=== PATIENT | male | born 1935 | race Caucasian/White ===

== ENCOUNTER 2017-06-27 11:06 | Inpatient (IN) | payer MEDICARE, OTHER ==
[~2017-06-27] VITALS: Ht 175.3 cm; Wt 79.0 kg
[~2017-06-27 11:06] MED LIST: BUPIVACAINE 0.25% ONE; BUPIVACAINE/PF 0.5% ONE; THROMBIN 5,000 UNIT VIAL TP ONE
[2017-06-27 11:49] VITALS: BP 189/90
[2017-06-27] MEDS ORDERED: LACTATED RINGERS 1,000 ML IV SCH (11:59)
[2017-06-27] MEDS ORDERED: LOSA50TA6 PO (12:02)
[2017-06-27] MEDS ORDERED: MELO15TA24 PO (12:02)
[2017-06-27] MEDS ORDERED: METO25TA35 PO (12:02)
[2017-06-27] MEDS ORDERED: FENTANYL PF 100 MCG/2ML ONE ×5 (13:32→16:44)
[2017-06-27] MEDS ORDERED: MIDAZOLAM 1 MG/ML, 2ML ONE (13:32)
[2017-06-27] MEDS ORDERED: ROCURONIUM 10 MG/ML ONE ×2 (14:02)
[2017-06-27] MEDS ORDERED: SUCCINYLCHOLINE 20 MG/ML, 10ML ONE (14:02)
[2017-06-27] MEDS ORDERED: DEXAMETHASONE 4 MG/ML, 1ML ONE (14:02)
[2017-06-27] MEDS ORDERED: CEFAZOLIN 1,000 MG ONE (14:02)
[2017-06-27] MEDS ORDERED: PROPOFOL 10 MG/ML, 20ML ONE (14:02)
[2017-06-27] MEDS ORDERED: BACITRACIN 50,000 UNIT IRRIG ONE (14:34)
[2017-06-27] MEDS ORDERED: EPINEPHRINE 1 MG/ML, 1ML INFIL ONE (14:35)
[2017-06-27] MEDS ORDERED: BUPIVACAINE/PF 0.25% EPIDPUSH ONE (15:26)
[2017-06-27] MEDS ORDERED: FENTANYL PF 100 MCG/2ML EPIDPUSH ONE (15:27)
[2017-06-27] MEDS ORDERED: ONDANSETRON 2MG/ML, 2ML IVPush PRN ×2 (16:00)
[2017-06-27] MEDS ORDERED: HYDROcodone/APAP 10/325 MG TABLET PO PRN (16:00)
[2017-06-27] MEDS ORDERED: HYDROcodone/APAP 7.5-325MG/15ML UDC PO PRN (16:00)
[2017-06-27] MEDS ORDERED: OXYcodone 5 MG/5 ML ORAL.SOL UDC PO PRN (16:00)
[2017-06-27] MEDS ORDERED: PHARMACY MAY ADJ FOR RENAL FX MC PRN (16:00)
[2017-06-27] MEDS ORDERED: DIPHENHYDRAMINE 50 MG/ML, 1ML IVPush PRN (16:00)
[2017-06-27] MEDS ORDERED: PROMETHAZINE 25 MG/ML, 1ML IV PRN (16:00)
[2017-06-27] MEDS ORDERED: morphine SULFATE 10 MG/ML, 1ML IVPush PRN (16:00)
[2017-06-27] MEDS ORDERED: ALBUTEROL SULFATE 2.5 MG/3 ML NPPB PRN (16:00)
[2017-06-27] MEDS ORDERED: OXYcodone/APAP 5/325MG TABLET PO PRN (16:00)
[2017-06-27] MEDS ORDERED: SENNA/DOCUSATE TABLET PO PRN (16:00)
[2017-06-27] MEDS ORDERED: LABETALOL 5MG/ML, 20ML IV PRN (16:00)
[2017-06-27] MEDS ORDERED: ACETAMINOPHEN 325 MG TABLET PO PRN ×2 (16:00)
[2017-06-27] MEDS ORDERED: MIDAZOLAM 1 MG/ML, 2ML IV PRN (16:00)
[2017-06-27] MEDS ORDERED: METOPROLOL 1 MG/ML, 5ML IV PRN (16:00)
[2017-06-27] MEDS ORDERED: EPHEDRINE 50 MG/ML, 1ML IVPush PRN (16:00)
[2017-06-27] MEDS ORDERED: BISACODYL 10 MG SUPP PR PRN (16:00)
[2017-06-27] MEDS ORDERED: PROMETHAZINE 25 MG/ML, 1ML IM PRN (16:00)
[2017-06-27] MEDS ORDERED: OXYcodone 5 MG/5 ML ORAL.SOL UDC ONE (16:17)
[2017-06-27] MEDS: FENTANYL PF 100 MCG/2ML IV PRN ×4 (16:19→17:10)
[2017-06-27] MEDS ORDERED: HYDROmorphone 1 MG/ML, 1ML ONE ×2 (16:38→17:21)
[2017-06-27] MEDS: HYDROmorphone 1 MG/ML, 1ML IV PRN ×4 (16:41→17:25)
[2017-06-27] MEDS ORDERED: hydrALAzine 20 MG/ML, 1ML ONE (16:52)
[2017-06-27] MEDS: hydrALAzine 20 MG/ML, 1ML IV PRN ×2 (16:54→17:44)
[2017-06-27] MEDS: SODIUM CHLORIDE FLUSH 10ML SYR IVF SCH (21:00)
[2017-06-27] MEDS: HYDROcodone/APAP 5/325 TABLET PO PRN (21:25)
[2017-06-27] MEDS: D5%-0.9% NACL+KCL 20MEQ 1,000 ML IV SCH (21:26)
[2017-06-27] MEDS: CYCLOBENZAPRINE 10 MG TABLET PO PRN (22:32)
[2017-06-27] MEDS: CEFAZOLIN PMX 1GM/50ML 50 ML IVPB SCH (22:32)
[2017-06-28] MEDS: HYDROcodone/APAP 5/325 TABLET PO PRN ×3 (01:39→20:40)
[2017-06-28 01:47] VITALS: BP 124/67
[2017-06-28] MEDS: D5%-0.9% NACL+KCL 20MEQ 1,000 ML IV SCH ×2 (05:20→13:40)
[2017-06-28] MEDS: CEFAZOLIN PMX 1GM/50ML 50 ML IVPB SCH (06:37)
[2017-06-28 07:03] VITALS: BP 125/70
[2017-06-28] MEDS ORDERED: TAMSULOSIN 0.4 MG CAP.ER.24H PO ONE (08:30)
[2017-06-28] MEDS: SODIUM CHLORIDE FLUSH 10ML SYR IVF SCH ×2 (09:00→20:41)
[2017-06-28] MEDS ORDERED: CALCIUM CARBONATE 500 MG TAB.CHEW ONE (09:45)
[2017-06-28] MEDS: CALCIUM CARBONATE 500 MG TAB.CHEW PO PRN ×2 (09:50→16:30)
[2017-06-28] MEDS: LOSARTAN 50MG TABLET PO SCH (09:53)
[2017-06-28] MEDS: BETHANECHOL 25 MG TABLET PO SCH ×3 (09:53→20:40)
[2017-06-28] MEDS: CYCLOBENZAPRINE 10 MG TABLET PO PRN (12:24)
[2017-06-28 13:17] VITALS: BP 149/72
[2017-06-28 20:20] VITALS: BP 148/66
[2017-06-28] MEDS: METOPROLOL TARTRATE 25 MG TABLET PO SCH (20:40)
[2017-06-29] MEDS: D5%-0.9% NACL+KCL 20MEQ 1,000 ML IV SCH (00:26)
[2017-06-29 02:04] VITALS: BP 143/73
[2017-06-29] MEDS: HYDROcodone/APAP 5/325 TABLET PO PRN ×2 (04:18→09:10)
[2017-06-29 06:45] VITALS: BP 154/74
[2017-06-29] MEDS: SODIUM CHLORIDE FLUSH 10ML SYR IVF SCH (09:10)
[2017-06-29] MEDS: BETHANECHOL 25 MG TABLET PO SCH (09:10)
[2017-06-29] MEDS: LOSARTAN 50MG TABLET PO SCH (09:10)
[2017-06-29] MEDS: METOPROLOL TARTRATE 25 MG TABLET PO SCH (09:10)
[2017-06-29] MEDS ORDERED: HYDR-3240 PO (10:09)
[2017-06-29] MEDS ORDERED: CYCL5TAB PO (10:09)
[2017-06-29] MEDS ORDERED: CEPH-368 PO (10:10)
[2017-06-29] MEDS ORDERED: ONDA4TAB10 PO (10:10)
[2017-06-29] MEDS: CALCIUM CARBONATE 500 MG TAB.CHEW PO PRN (11:40)
[2017-06-29 11:42] VITALS: BP 117/69
[2017-06-29 13:33] VITALS: BP 108/63
== END 2017-06-29 13:55 | disposition home or self-care (01) | DRG 320 ==
LOC: OUT 11:06 → ORIP 16:51 → 4NOR 18:35
PROVIDERS: ADMIT Neurological Surgery; ATTEND Neurological Surgery
PROC: 01NR0ZZ Release Sacral Nerve, Open Approach (ICD-10-PCS; 2017-06-27)
PROC: 01NB0ZZ Release Lumbar Nerve, Open Approach (ICD-10-PCS; principal; 2017-06-27 15:30)
DX: M48.07 Spinal stenosis, lumbosacral region (principal); G89.29 Other chronic pain; M54.16 Radiculopathy, lumbar region; R33.9 Retention of urine, unspecified; Z90.49 Acquired absence of other specified parts of digestive tract; Z72.89 Other problems related to lifestyle; M48.06 Spinal stenosis, lumbar region
CPT/HCPCS: 72100; J0171; J0690; J1100; J1170; J2250; J2405; J2704; J3010; J3490; J0330; J0360; J3480; J7120

== ENCOUNTER 2018-11-14 06:32 | Inpatient (IN) | payer MEDICARE, OTHER ==
[~2018-11-14] VITALS: Ht 172.7 cm; Wt 83.2 kg
[~2018-11-14 06:32] MED LIST changes: +BACITRACIN 50,000 UNIT ONE; -BUPIVACAINE 0.25% ONE; -BUPIVACAINE/PF 0.5% ONE; +BUPIVACAINE/PF-EPI 0.5% 1:200K ONE; +CEFAZOLIN 1,000 MG ONE; +CEPH-368 PO; +CYCL5TAB PO; +FENTANYL PF 250 MCG/5ML ONE; +FLUT1AER PO; +GLYCOPYRROLATE 0.2MG/1ML, 5ML ONE; +HYDR-3240 PO; +LOSA50TA14 PO; +MELO15TA24 PO; +METO-93 PO; +METO25TA35 PO; +MULT1TAB13 PO; +NEOSTIGMINE 1 MG/ML, 10ML ONE; +OMEP20TA62 PO; +ONDA4TAB10 PO; +PROPOFOL 10 MG/ML, 20ML ONE; +PROPOFOL 50 ML ONE; +ROCURONIUM 10MG/ML,5ML ONE; +TAMS-11 PO; +VIT1CAPS42 PO
[2018-11-14 07:30] VITALS: BP 184/88
[2018-11-14] MEDS ORDERED: LACTATED RINGERS 1,000 ML IV SCH (07:34)
[2018-11-14] MEDS ORDERED: ACETAMINOPHEN 500 MG TABLET PO ONE (08:00)
[2018-11-14] MEDS ORDERED: GABAPENTIN 300 MG CAPSULE PO ONE (08:00)
[2018-11-14] MEDS ORDERED: LIDOCAINE-MPF 1%, 2ML INFIL ONE (08:00)
[2018-11-14] MEDS ORDERED: ONDANSETRON 2MG/ML, 2ML IV PRN (09:30)
[2018-11-14] MEDS ORDERED: OXYcodone 5 MG/5 ML ORAL.SOL UDC PO PRN (09:30)
[2018-11-14] MEDS ORDERED: ONDANSETRON ODT 8 MG PO PRN (09:30)
[2018-11-14] MEDS ORDERED: PROMETHAZINE 25 MG SUPP PR PRN (09:30)
[2018-11-14] MEDS ORDERED: PROMETHAZINE 25 MG/ML, 1ML IV PRN (09:30)
[2018-11-14] MEDS ORDERED: PROMETHAZINE 25 MG/ML, 1ML IM PRN ×3 (09:30→13:00)
[2018-11-14] MEDS ORDERED: MORPHINE SULFATE 4 MG/ML, 1ML IVPush PRN (09:30)
[2018-11-14] MEDS ORDERED: hydrALAzine 20 MG/ML, 1ML IV PRN (09:30)
[2018-11-14] MEDS ORDERED: LABETALOL 5MG/ML, 20ML IV PRN (09:30)
[2018-11-14] MEDS ORDERED: PROMETHAZINE 12.5 MG SUPP PR PRN (09:30)
[2018-11-14] MEDS ORDERED: MEPERIDINE/PF 25MG/0.5ML IVPush PRN (09:30)
[2018-11-14] MEDS ORDERED: PHENYLEPHRINE 10 MG/ML ONE (09:53)
[2018-11-14] MEDS ORDERED: PROPOFOL 50 ML ONE (10:32)
[2018-11-14] MEDS ORDERED: SENNA/DOCUSATE TABLET PO PRN (13:00)
[2018-11-14] MEDS ORDERED: OXYcodone/APAP 5/325MG TABLET PO PRN (13:00)
[2018-11-14] MEDS ORDERED: BISACODYL 10 MG SUPP PR PRN (13:00)
[2018-11-14] MEDS ORDERED: morphine SULFATE 10 MG/ML, 1ML IVPush PRN (13:00)
[2018-11-14] MEDS ORDERED: PHARMACY MAY ADJ FOR RENAL FX MC PRN (13:00)
[2018-11-14] MEDS ORDERED: MEPERIDINE/PF 25MG/ML,1ML ONE (13:10)
[2018-11-14] MEDS ORDERED: FENTANYL PF 100 MCG/2ML ONE (13:20)
[2018-11-14] MEDS ORDERED: CYCLOBENZAPRINE 10 MG TABLET ONE (13:20)
[2018-11-14] MEDS ORDERED: OXYcodone 5 MG/5 ML ORAL.SOL UDC ONE (13:20)
[2018-11-14] MEDS: CYCLOBENZAPRINE 10 MG TABLET PO PRN (13:25)
[2018-11-14] MEDS: FENTANYL PF 100 MCG/2ML IV PRN ×2 (13:25→13:30)
[2018-11-14] MEDS ORDERED: hydrALAzine 20 MG/ML, 1ML ONE (13:37)
[2018-11-14] MEDS ORDERED: HYDROmorphone 1 MG/ML, 1ML ONE ×2 (13:37→13:38)
[2018-11-14] MEDS: HYDROmorphone 2 MG/ML, 1ML IVPush PRN ×4 (13:45→14:05)
[2018-11-14] MEDS: D5%-0.9% NACL+KCL 20MEQ 1,000 ML IV SCH (15:33)
[2018-11-14] MEDS: HYDROcodone/APAP 5/325 TABLET PO PRN (16:50)
[2018-11-14] MEDS: CEFAZOLIN PMX 1GM/50ML 50 ML IVPB SCH (18:19)
[2018-11-14 19:42] VITALS: BP 134/78
[2018-11-14] MEDS: SODIUM CHLORIDE FLUSH 10ML SYR IVF SCH (20:35)
[2018-11-14] MEDS: LOSARTAN 50MG TABLET PO SCH (20:36)
[2018-11-15] VITALS (7 sets, daily range): BP systolic 133–190; BP diastolic 75–86
[2018-11-15] MEDS: CEFAZOLIN PMX 1GM/50ML 50 ML IVPB SCH (02:50)
[2018-11-15] MEDS: ENOXAPARIN 40 MG/0.4 ML SQ SCH (05:48)
[2018-11-15] MEDS: D5%-0.9% NACL+KCL 20MEQ 1,000 ML IV SCH (05:48)
[2018-11-15] MEDS: HYDROcodone/APAP 5/325 TABLET PO PRN ×2 (05:59→10:24)
[2018-11-15] MEDS: LOSARTAN 50MG TABLET PO SCH ×2 (08:30→21:18)
[2018-11-15] MEDS: METOPROLOL SUCCINATE 50 MG TAB.ER.24H PO SCH (08:30)
[2018-11-15] MEDS: TAMSULOSIN 0.4 MG CAP.ER.24H PO SCH (08:30)
[2018-11-15] MEDS: OMEPRAZOLE 20 MG CAPSULE.DR PO SCH (08:30)
[2018-11-15] MEDS: FLUTICASONE/VILANTEROL 100-25MCG/INH INH SCH (08:31)
[2018-11-15] MEDS: LUTEIN PO SCH (08:31)
[2018-11-15] MEDS: MULTIVITAMIN W MINERALS PO SCH (08:31)
[2018-11-15] MEDS: SODIUM CHLORIDE FLUSH 10ML SYR IVF SCH ×2 (08:31→21:19)
[2018-11-15] MEDS: ONDANSETRON 2MG/ML, 2ML IVPush PRN ×2 (10:26→18:33)
[2018-11-15] MEDS: CYCLOBENZAPRINE 10 MG TABLET PO PRN (15:03)
[2018-11-15] MEDS: HYDROcodone/APAP 10/325 MG TABLET PO PRN (18:44)
[2018-11-16] MEDS: FAMOTIDINE 20 MG TABLET PO SCH ×3 (00:13→19:46)
[2018-11-16 00:19] VITALS: BP 179/90
[2018-11-16] MEDS: D5%-0.9% NACL+KCL 20MEQ 1,000 ML IV SCH ×4 (01:27→19:47)
[2018-11-16] MEDS: ONDANSETRON 2MG/ML, 2ML IVPush PRN (02:04)
[2018-11-16 02:07] VITALS: BP 140/79
[2018-11-16] MEDS: ENOXAPARIN 40 MG/0.4 ML SQ SCH (05:19)
[2018-11-16] MEDS ORDERED: BUPIVACAINE 0.25% ONE (06:07)
[2018-11-16] MEDS ORDERED: BUPIVACAINE/PF-EPI 0.5% 1:200K ONE (06:07)
[2018-11-16] MEDS ORDERED: BACITRACIN 50,000 UNIT ONE (06:08)
[2018-11-16] MEDS ORDERED: THROMBIN 5,000 UNIT VIAL TP ONE ×2 (06:08→07:55)
[2018-11-16] MEDS ORDERED: PROPOFOL 50 ML ONE (06:58)
[2018-11-16] MEDS ORDERED: FENTANYL PF 250 MCG/5ML ONE (06:58)
[2018-11-16] MEDS ORDERED: EPHEDRINE 50 MG/ML, 1ML ONE (07:06)
[2018-11-16] MEDS ORDERED: ROCURONIUM 10MG/ML,5ML ONE (07:06)
[2018-11-16] MEDS ORDERED: ONDANSETRON 2MG/ML, 2ML ONE (07:06)
[2018-11-16] MEDS ORDERED: SUCCINYLCHOLINE 20 MG/ML, 10ML ONE (07:06)
[2018-11-16] MEDS ORDERED: PHENYLEPHRINE 10 MG/ML ONE (07:06)
[2018-11-16] MEDS ORDERED: BUPIVACAINE/PF-EPI 0.5% 1:200K INFIL ONE (07:55)
[2018-11-16] MEDS ORDERED: BACITRACIN 50,000 UNIT IRRIG ONE (07:56)
[2018-11-16] MEDS ORDERED: BISACODYL 10 MG SUPP PR PRN (09:00)
[2018-11-16] MEDS ORDERED: PROCHLORPERAZINE 5 MG/ML, 2ML IV PRN (09:00)
[2018-11-16] MEDS ORDERED: HYDROmorphone 2 MG/ML, 1ML IVPush PRN (09:00)
[2018-11-16] MEDS ORDERED: HYDROcodone/APAP 5/325 TABLET PO PRN (09:00)
[2018-11-16] MEDS ORDERED: MEPERIDINE/PF 25MG/0.5ML IVPush PRN (09:00)
[2018-11-16] MEDS ORDERED: METOPROLOL 1 MG/ML, 5ML IV PRN (09:00)
[2018-11-16] MEDS ORDERED: CYCLOBENZAPRINE 10 MG TABLET PO PRN (09:00)
[2018-11-16] MEDS ORDERED: hydrALAzine 20 MG/ML, 1ML IV PRN (09:00)
[2018-11-16] MEDS ORDERED: PROMETHAZINE 25 MG/ML, 1ML IV PRN (09:00)
[2018-11-16] MEDS ORDERED: ONDANSETRON 2MG/ML, 2ML IVPush PRN (09:00)
[2018-11-16] MEDS ORDERED: LABETALOL 5MG/ML, 20ML IV PRN (09:00)
[2018-11-16] MEDS: FLUTICASONE/VILANTEROL 100-25MCG/INH INH SCH (09:00)
[2018-11-16] MEDS ORDERED: OXYcodone 5 MG/5 ML ORAL.SOL UDC PO PRN (09:00)
[2018-11-16] MEDS ORDERED: HALOPERIDOL 5 MG/ML IV PRN (09:00)
[2018-11-16] MEDS ORDERED: ALBUTEROL SULFATE 2.5 MG/3 ML NPPB PRN (09:00)
[2018-11-16] MEDS ORDERED: PHARMACY MAY ADJ FOR RENAL FX MC PRN (09:00)
[2018-11-16] MEDS: MULTIVITAMIN W MINERALS PO SCH (09:00)
[2018-11-16] MEDS ORDERED: HYDROcodone/APAP 10/325 MG TABLET PO PRN (09:00)
[2018-11-16] MEDS ORDERED: DIPHENHYDRAMINE 50 MG/ML, 1ML IVPush PRN (09:00)
[2018-11-16] MEDS: SODIUM CHLORIDE FLUSH 10ML SYR IVF SCH ×4 (09:00→19:47)
[2018-11-16] MEDS ORDERED: OXYcodone/APAP 5/325MG TABLET PO PRN (09:00)
[2018-11-16] MEDS ORDERED: SENNA/DOCUSATE TABLET PO PRN (09:00)
[2018-11-16] MEDS ORDERED: FENTANYL PF 100 MCG/2ML IV PRN (09:00)
[2018-11-16] MEDS ORDERED: morphine SULFATE 10 MG/ML, 1ML IVPush PRN (09:00)
[2018-11-16] MEDS ORDERED: PROMETHAZINE 25 MG/ML, 1ML IM PRN (09:00)
[2018-11-16] MEDS: LUTEIN PO SCH (09:00)
[2018-11-16] MEDS ORDERED: FENTANYL PF 100 MCG/2ML ONE (09:05)
[2018-11-16] MEDS: TAMSULOSIN 0.4 MG CAP.ER.24H PO SCH (10:40)
[2018-11-16] MEDS: METOPROLOL SUCCINATE 50 MG TAB.ER.24H PO SCH (10:40)
[2018-11-16] MEDS: OMEPRAZOLE 20 MG CAPSULE.DR PO SCH (10:40)
[2018-11-16] MEDS: LOSARTAN 50MG TABLET PO SCH ×2 (10:41→19:46)
[2018-11-16] MEDS: CEFAZOLIN PMX 1GM/50ML 50 ML IVPB SCH ×2 (10:57→19:46)
[2018-11-16 11:47] VITALS: BP 124/82
[2018-11-16 13:45] VITALS: BP 114/71
[2018-11-16] MEDS: HYDROcodone/APAP 10/325 MG TABLET PO PRN (18:07)
[2018-11-16 18:48] LABS: BASOPHILS # (AUTO) 0.01 x10^3/uL (0-0.1); BASOPHILS % (AUTO) 0 % (0-1); EOSINOPHILS # (AUTO) 0.03 x10^3/uL (0-0.4); EOSINOPHILS % (AUTO) 0 % (1-7); LYMPHOCYTES # (AUTO) 0.39 x10^3/uL (1-3.4); LYMPHOCYTES % (AUTO) 6 % (22-44); MD NO; MEAN CORPUSCULAR HEMOGLOBIN 34.6 pg (27.5-34.5); MEAN CORPUSCULAR HGB CONC 33.4 g/dL (33.2-36.2); MEAN CORPUSCULAR VOLUME 103.6 fL (81-97); MEAN PLATELET VOLUME 7.6 fL (7.4-10.4); MONOCYTES # (AUTO) 0.67 x10^3/uL (0.2-0.8); MONOCYTES % (AUTO) 10 % (2-9); NEUTROPHILS # (AUTO) 5.78 x10^3/uL (1.8-6.8); NEUTROPHILS % (AUTO) 84 % (42-75); PLATELET COUNT 162 x10^3/uL (130-400); RED BLOOD COUNT 3.21 x10^6/uL (4.38-5.82); RED CELL DISTRIBUTION WIDTH 13.7 % (9.4-14.8)
[2018-11-16 19:41] VITALS: BP 124/69
[2018-11-17 00:19] VITALS: BP 129/74
[2018-11-17 03:57] VITALS: BP 151/80
[2018-11-17] MEDS: CYCLOBENZAPRINE 10 MG TABLET PO PRN ×2 (04:32→12:20)
[2018-11-17] MEDS: ENOXAPARIN 40 MG/0.4 ML SQ SCH (04:32)
[2018-11-17] MEDS: D5%-0.9% NACL+KCL 20MEQ 1,000 ML IV SCH (05:11)
[2018-11-17 05:40] LABS: BASOPHILS # (AUTO) 0.01 x10^3/uL (0-0.1); BASOPHILS % (AUTO) 0 % (0-1); EOSINOPHILS # (AUTO) 0.11 x10^3/uL (0-0.4); EOSINOPHILS % (AUTO) 2 % (1-7); LYMPHOCYTES # (AUTO) 0.62 x10^3/uL (1-3.4); LYMPHOCYTES % (AUTO) 10 % (22-44); MD NO; MEAN CORPUSCULAR HEMOGLOBIN 35.2 pg (27.5-34.5); MEAN CORPUSCULAR HGB CONC 34.5 g/dL (33.2-36.2); MEAN CORPUSCULAR VOLUME 102.1 fL (81-97); MEAN PLATELET VOLUME 7.9 fL (7.4-10.4); MONOCYTES # (AUTO) 0.85 x10^3/uL (0.2-0.8); MONOCYTES % (AUTO) 13 % (2-9); NEUTROPHILS # (AUTO) 4.75 x10^3/uL (1.8-6.8); NEUTROPHILS % (AUTO) 75 % (42-75); PLATELET COUNT 146 x10^3/uL (130-400); RED CELL DISTRIBUTION WIDTH 13.8 % (9.4-14.8)
[2018-11-17 07:09] VITALS: BP 153/80
[2018-11-17] MEDS: TAMSULOSIN 0.4 MG CAP.ER.24H PO SCH (07:33)
[2018-11-17] MEDS: FAMOTIDINE 20 MG TABLET PO SCH ×2 (07:33→22:29)
[2018-11-17] MEDS: OMEPRAZOLE 20 MG CAPSULE.DR PO SCH (07:33)
[2018-11-17] MEDS: METOPROLOL SUCCINATE 50 MG TAB.ER.24H PO SCH (07:33)
[2018-11-17] MEDS: FLUTICASONE/VILANTEROL 100-25MCG/INH INH SCH (07:33)
[2018-11-17] MEDS: LOSARTAN 50MG TABLET PO SCH ×2 (07:33→22:29)
[2018-11-17] MEDS: HYDROcodone/APAP 10/325 MG TABLET PO PRN ×2 (07:33→12:22)
[2018-11-17] MEDS: SODIUM CHLORIDE FLUSH 10ML SYR IVF SCH ×4 (07:38→21:00)
[2018-11-17] MEDS: MULTIVITAMIN W MINERALS PO SCH (07:39)
[2018-11-17] MEDS: LUTEIN PO SCH (07:39)
[2018-11-17 11:05] LABS: ALANINE AMINOTRANSFERASE 12 U/L (12-78); ALBUMIN 2.4 g/dL (3.4-5.0); ANION GAP 3 mmol/L (5-15); CALCIUM 8.6 mg/dL (8.5-10.1); CHLORIDE 108 mmol/L (98-107); CREATININE 1.11 mg/dL (0.7-1.3)
[2018-11-17 11:08] LABS: ALKALINE PHOSPHATASE 51 U/L (45-117); BILIRUBIN,TOTAL 0.9 mg/dL (0.2-1.0); TOTAL PROTEIN 5.2 g/dL (6.4-8.2)
[2018-11-17] MEDS ORDERED: OMNIPAQUE 350 MG/ML, 100ML BOTTLE ONE (11:55)
[2018-11-17 14:00] VITALS: BP 135/82
[2018-11-17] MEDS ORDERED: MAGNESIUM CITRATE 300ML ORAL SOL PO PRN (17:00)
[2018-11-17] MEDS ORDERED: MAGNESIUM HYDROXIDE 8%, 30ML UDC PO ONE (17:00)
[2018-11-17 21:31] VITALS: BP 163/82
[2018-11-18] MEDS: D5%-0.9% NACL+KCL 20MEQ 1,000 ML IV SCH ×2 (00:03→16:57)
[2018-11-18 00:50] VITALS: BP 161/86
[2018-11-18 05:00] LABS: BASOPHILS # (AUTO) 0.01 x10^3/uL (0-0.1); BASOPHILS % (AUTO) 0 % (0-1); EOSINOPHILS # (AUTO) 0.14 x10^3/uL (0-0.4); EOSINOPHILS % (AUTO) 3 % (1-7); LYMPHOCYTES # (AUTO) 0.65 x10^3/uL (1-3.4); LYMPHOCYTES % (AUTO) 13 % (22-44); MD NO; MEAN CORPUSCULAR HEMOGLOBIN 35.1 pg (27.5-34.5); MEAN CORPUSCULAR HGB CONC 34.1 g/dL (33.2-36.2); MEAN CORPUSCULAR VOLUME 103.1 fL (81-97); MEAN PLATELET VOLUME 7.8 fL (7.4-10.4); MONOCYTES # (AUTO) 0.79 x10^3/uL (0.2-0.8); MONOCYTES % (AUTO) 15 % (2-9); NEUTROPHILS # (AUTO) 3.65 x10^3/uL (1.8-6.8); NEUTROPHILS % (AUTO) 70 % (42-75); PLATELET COUNT 158 x10^3/uL (130-400); RED CELL DISTRIBUTION WIDTH 13.3 % (9.4-14.8)
[2018-11-18] MEDS: ENOXAPARIN 40 MG/0.4 ML SQ SCH (05:49)
[2018-11-18] MEDS: CYCLOBENZAPRINE 10 MG TABLET PO PRN (05:49)
[2018-11-18 07:06] VITALS: BP 153/83
[2018-11-18] MEDS: FAMOTIDINE 20 MG TABLET PO SCH ×2 (08:51→20:52)
[2018-11-18] MEDS: METOPROLOL SUCCINATE 50 MG TAB.ER.24H PO SCH (08:51)
[2018-11-18] MEDS: OMEPRAZOLE 20 MG CAPSULE.DR PO SCH (08:51)
[2018-11-18] MEDS: LOSARTAN 50MG TABLET PO SCH ×2 (08:52→20:51)
[2018-11-18] MEDS: FLUTICASONE/VILANTEROL 100-25MCG/INH INH SCH (08:52)
[2018-11-18] MEDS: BETHANECHOL 10 MG TABLET PO SCH ×3 (08:52→20:52)
[2018-11-18] MEDS: TAMSULOSIN 0.4 MG CAP.ER.24H PO SCH (08:52)
[2018-11-18] MEDS: LUTEIN PO SCH (08:56)
[2018-11-18] MEDS: MULTIVITAMIN W MINERALS PO SCH (08:56)
[2018-11-18] MEDS: SODIUM CHLORIDE FLUSH 10ML SYR IVF SCH ×4 (08:56→20:51)
[2018-11-18 13:38] VITALS: BP 173/79
[2018-11-18 20:38] VITALS: BP 159/96
[2018-11-19 03:56] VITALS: BP 177/93
[2018-11-19 05:22] LABS: BASOPHILS # (AUTO) 0.01 x10^3/uL (0-0.1); BASOPHILS % (AUTO) 0 % (0-1); EOSINOPHILS # (AUTO) 0.08 x10^3/uL (0-0.4); EOSINOPHILS % (AUTO) 2 % (1-7); LYMPHOCYTES # (AUTO) 0.48 x10^3/uL (1-3.4); LYMPHOCYTES % (AUTO) 10 % (22-44); MD NO; MEAN CORPUSCULAR HEMOGLOBIN 35.1 pg (27.5-34.5); MEAN CORPUSCULAR HGB CONC 34.2 g/dL (33.2-36.2); MEAN CORPUSCULAR VOLUME 102.6 fL (81-97); MEAN PLATELET VOLUME 7.4 fL (7.4-10.4); MONOCYTES # (AUTO) 0.64 x10^3/uL (0.2-0.8); MONOCYTES % (AUTO) 13 % (2-9); NEUTROPHILS # (AUTO) 3.61 x10^3/uL (1.8-6.8); NEUTROPHILS % (AUTO) 75 % (42-75); PLATELET COUNT 180 x10^3/uL (130-400); RED CELL DISTRIBUTION WIDTH 13.1 % (9.4-14.8)
[2018-11-19] MEDS: D5%-0.9% NACL+KCL 20MEQ 1,000 ML IV SCH ×2 (05:51→21:01)
[2018-11-19] MEDS: ENOXAPARIN 40 MG/0.4 ML SQ SCH (05:52)
[2018-11-19 07:34] VITALS: BP 133/76
[2018-11-19] MEDS: FLUTICASONE/VILANTEROL 100-25MCG/INH INH SCH (09:00)
[2018-11-19] MEDS: LUTEIN PO SCH (09:00)
[2018-11-19] MEDS: BETHANECHOL 10 MG TABLET PO SCH ×3 (09:00→21:00)
[2018-11-19] MEDS: MULTIVITAMIN W MINERALS PO SCH (09:00)
[2018-11-19] MEDS: SODIUM CHLORIDE FLUSH 10ML SYR IVF SCH ×4 (09:00→21:03)
[2018-11-19] MEDS: TAMSULOSIN 0.4 MG CAP.ER.24H PO SCH (09:48)
[2018-11-19] MEDS: METOPROLOL SUCCINATE 50 MG TAB.ER.24H PO SCH (09:48)
[2018-11-19] MEDS: OMEPRAZOLE 20 MG CAPSULE.DR PO SCH (09:48)
[2018-11-19] MEDS: FAMOTIDINE 20 MG TABLET PO SCH ×2 (09:49→21:01)
[2018-11-19] MEDS: LOSARTAN 50MG TABLET PO SCH ×2 (09:49→21:02)
[2018-11-19] MEDS ORDERED: BETH10TA12 PO (10:46)
[2018-11-19] MEDS ORDERED: FAMO-79 PO (10:47)
[2018-11-19] MEDS ORDERED: SENN1TAB8 PO (10:48)
[2018-11-19] MEDS ORDERED: HYDR-3307 PO (10:49)
[2018-11-19] MEDS ORDERED: CYCL-259 PO (10:50)
[2018-11-19 14:48] VITALS: BP 150/79
[2018-11-19 19:03] VITALS: BP 170/80
[2018-11-20 03:07] VITALS: BP 194/91
[2018-11-20 03:21] VITALS: BP 173/93
[2018-11-20] MEDS: ENOXAPARIN 40 MG/0.4 ML SQ SCH (05:57)
[2018-11-20 05:58] VITALS: BP 154/88
[2018-11-20 06:08] LABS: BASOPHILS # (AUTO) 0.03 x10^3/uL (0-0.1); BASOPHILS % (AUTO) 1 % (0-1); EOSINOPHILS # (AUTO) 0.14 x10^3/uL (0-0.4); EOSINOPHILS % (AUTO) 3 % (1-7); LYMPHOCYTES # (AUTO) 0.53 x10^3/uL (1-3.4); LYMPHOCYTES % (AUTO) 13 % (22-44); MD NO; MEAN CORPUSCULAR HEMOGLOBIN 33.9 pg (27.5-34.5); MEAN CORPUSCULAR HGB CONC 33.1 g/dL (33.2-36.2); MEAN CORPUSCULAR VOLUME 102.5 fL (81-97); MEAN PLATELET VOLUME 7.6 fL (7.4-10.4); MONOCYTES # (AUTO) 0.58 x10^3/uL (0.2-0.8); MONOCYTES % (AUTO) 14 % (2-9); NEUTROPHILS # (AUTO) 2.96 x10^3/uL (1.8-6.8); NEUTROPHILS % (AUTO) 70 % (42-75); PLATELET COUNT 191 x10^3/uL (130-400); RED BLOOD COUNT 2.72 x10^6/uL (4.38-5.82); RED CELL DISTRIBUTION WIDTH 13.1 % (9.4-14.8)
[2018-11-20 07:27] VITALS: BP 173/76
[2018-11-20] MEDS: FAMOTIDINE 20 MG TABLET PO SCH (07:49)
[2018-11-20] MEDS: OMEPRAZOLE 20 MG CAPSULE.DR PO SCH (07:49)
[2018-11-20] MEDS: LOSARTAN 50MG TABLET PO SCH (07:49)
[2018-11-20] MEDS: METOPROLOL SUCCINATE 50 MG TAB.ER.24H PO SCH (07:49)
[2018-11-20] MEDS: TAMSULOSIN 0.4 MG CAP.ER.24H PO SCH (07:49)
[2018-11-20] MEDS: BETHANECHOL 10 MG TABLET PO SCH (07:49)
[2018-11-20] MEDS: LUTEIN PO SCH (07:50)
[2018-11-20] MEDS: MULTIVITAMIN W MINERALS PO SCH (07:50)
[2018-11-20] MEDS: SODIUM CHLORIDE FLUSH 10ML SYR IVF SCH ×2 (07:50)
[2018-11-20] MEDS: FLUTICASONE/VILANTEROL 100-25MCG/INH INH SCH (07:50)
[2018-11-20] MEDS: D5%-0.9% NACL+KCL 20MEQ 1,000 ML IV SCH (08:00)
[2018-11-20] MEDS ORDERED: CYCLOBENZAPRINE 10 MG TABLET PO PRN (09:17)
[2018-11-20] MEDS ORDERED: BETHANECHOL 10 MG TABLET PO ONE (09:30)
[2018-11-20 14:18] VITALS: BP 144/76
[2018-11-20] MEDS ORDERED: TAMSULOSIN 0.4 MG CAP.ER.24H PO SCH (21:00)
[2018-11-20] MEDS ORDERED: BETHANECHOL 25 MG TABLET PO SCH (21:00)
== END 2018-11-20 16:30 | DRG 453 ==
LOC: ORIP 06:32 → 4NOR 14:58
PROVIDERS: ADMIT Neurological Surgery; ATTEND Neurological Surgery
PROC: 4A11X4G Monitoring of Peripheral Nervous Electrical Activity, Intraoperative, External Approach (ICD-10-PCS; 2018-11-16)
PROC: 0SG1071 Fusion of 2 or more Lumbar Vertebral Joints with Autologous Tissue Substitute, Posterior Approach, Posterior Column, Open Approach (ICD-10-PCS; 2018-11-16)
PROC: 0SB20ZZ Excision of Lumbar Vertebral Disc, Open Approach (ICD-10-PCS; 2018-11-16)
PROC: 0SG10A0 Fusion of 2 or more Lumbar Vertebral Joints with Interbody Fusion Device, Anterior Approach, Anterior Column, Open Approach (ICD-10-PCS; principal; 2018-11-16 07:00)
DX: M48.061 Spinal stenosis, lumbar region without neurogenic claudication (principal); E43 Unspecified severe protein-calorie malnutrition; M48.56XA Collapsed vertebra, not elsewhere classified, lumbar region, initial encounter for fracture; M43.16 Spondylolisthesis, lumbar region; M51.16 Intervertebral disc disorders with radiculopathy, lumbar region; I10 Essential (primary) hypertension; K21.9 Gastro-esophageal reflux disease without esophagitis; J45.909 Unspecified asthma, uncomplicated; M41.86 Other forms of scoliosis, lumbar region; N40.0 Benign prostatic hyperplasia without lower urinary tract symptoms; S73.101A Unspecified sprain of right hip, initial encounter; X58.XXXA Exposure to other specified factors, initial encounter; Y93.89 Activity, other specified; Y92.89 Other specified places as the place of occurrence of the external cause; Y99.8 Other external cause status; Z87.891 Personal history of nicotine dependence; Z68.27 Body mass index [BMI] 27.0-27.9, adult; Z90.49 Acquired absence of other specified parts of digestive tract
CPT/HCPCS: 36415; 71045; 72100; 72131; 74018; 74177; 80053; 85025; 86850; 86900; C1713; G0378; J0690; J1170; J1650; J2175; J2405; J2704; J2710; J3010; J3490; Q9967; C1760; C1762; C1763; C1769; J0330; J0360; J2370; J3480; J7120